=== PATIENT | male | born 1995 | race Caucasian/White ===

== ENCOUNTER 2019-11-11 22:38 | Emergency (ER) | payer OTHER ==
[~2019-11-11] VITALS: Ht 182.9 cm; Wt 91.9 kg
[2019-11-11 22:39] VITALS: BP 126/77
[2019-11-11] MEDS ORDERED: IBUPROFEN 600 MG TAB PO ONE (23:15)
[2019-11-11] MEDS ORDERED: ONDANSETRON 4 MG ORAL DISINTEGRATING TAB (Q0162 PER 1MG) PO ONE (23:15)
[2019-11-11 23:52] LABS: INFLUENZA A AMPLIFICATION POSITIVE (NEGATIVE); INFLUENZA B AMPLIFICATION NEGATIVE (NEGATIVE)
[2019-11-12] MEDS ORDERED: OSELTAMIVIR PHOSPHATE 75 MG CAP (TAMIFLU) PO ONE
[2019-11-12] MEDS ORDERED: ONDA4TAB6 PO (00:12)
[2019-11-12] MEDS ORDERED: OSEL75CA PO (00:12)
== END 2019-11-12 00:18 | disposition home or self-care (01) ==
LOC: EDBD 22:38 → M ED 22:38
DX: J09.X2 Influenza due to identified novel influenza A virus with other respiratory manifestations (principal)
CPT/HCPCS: 87502; 99282; Q0162

== ENCOUNTER 2021-07-29 16:49 | Emergency (ER) | payer OTHER ==
[~2021-07-29] VITALS: Ht 182.9 cm; Wt 87.7 kg
[~2021-07-29 16:49] MED LIST: ONDA4TAB6 PO; OSEL75CA PO
[2021-07-29] MEDS ORDERED: ACET-683 PO (16:56)
--- NOTE | 2021-07-29 17:52 | REPVR ---
PROCEDURE INFORMATION: Exam: CT Head Without Contrast Exam date and time: 07/29/2021 5:24 PM Age: 25 years old Clinical indication: Injury or trauma; Fall; Blunt trauma (contusions or hematomas); Additional info: Head injury TECHNIQUE: Imaging protocol: Computed tomography of the head without contrast. Axial and coronal reformatted images were created and reviewed. Radiation optimization: All CT scans at this facility use at least one of these dose optimization techniques: automated exposure control; mA and/or kV adjustment per patient size (includes targeted exams where dose is matched to clinical indication); or iterative reconstruction. COMPARISON: No relevant prior studies available. FINDINGS: Brain: No CT evidence of acute intracranial hemorrhage or acute territorial infarction. No significant mass effect or midline shift. Basal cisterns patent. Cerebral ventricles: Normal in size and configuration. Paranasal sinuses: Unremarkable. No fluid levels. Mastoid air cells: Grossly unremarkable. Bones/joints: No acute osseous abnormality. Soft tissues: Grossly unremarkable. IMPRESSION: No CT evidence of acute intracranial pathology. Electronically signed by: Michael De Dios On 07/29/2021 17:51:52 PM
[2021-07-29 21:19] VITALS: BP 118/65
== END 2021-07-29 21:20 | disposition home or self-care (01) ==
LOC: M ED 16:49
DX: S06.0X0A Concussion without loss of consciousness, initial encounter (principal); W01.0XXA Fall on same level from slipping, tripping and stumbling without subsequent striking against object, initial encounter; Y92.830 Public park as the place of occurrence of the external cause; Y93.63 Activity, rugby